=== PATIENT | female | born 1995 | race American Indian/Alaskan Native ===

== ENCOUNTER 2017-06-26 05:42 | Inpatient (IN) | payer MEDICAID ==
[2017-06-26] MEDS ORDERED: LACTATED RINGERS 1,000 ML ONE (05:52)
[2017-06-26] MEDS: LACTATED RINGERS 1,000 ML IV SCH ×2 (06:00→12:01)
[2017-06-26] MEDS ORDERED: PEPCID IV NR (07:00)
[2017-06-26] MEDS ORDERED: BICITRA PO NR (07:00)
--- NOTE | 2017-06-26 07:17 | History and Physical Report ---
History of Present Illness Date of examination: 06/26/17 Date of admission: 06/26/17 05:42 Chief complaint: I'm here for my History of present illness: Patient is a 22 year old who presents at 39 weeks with EDC 07/03/2017. Patient has been in care since 19 weeks and has been fairly consistent with her visits. She has had an uncomplicated course. All labs have been normal. Past History Past Medical History: no pertinent history Past Surgical History: section (x2) [employer]ORDIN[employer] History: chlamydia Family/Genetic History: none - Obstetrical History Expected Date of Delivery: 07/03/17 Actual Gestation: 39 Week(s) 0 Day(s) : 3 Para: 2 Number of Living Children: 2 Medications and Allergies Allergies Allergy/AdvReac Type Severity Reaction Status Date / Time No Known Allergies Allergy Verified 06/26/17 05:46 Active Meds: Active Medications Citric Acid/Sodium Citrate (Bicitra) 30 ml PO ONCE ONE Stop: 06/26/17 07:02 Famotidine (Pepcid) 20 mg IV ONCE ONE Stop: 06/26/17 07:02 Cefazolin Sodium (Ancef/Sterile Water 2 Gm/20 Ml) 2 gm in 20 mls @ 80 mls/hr IV PREOP NR PRN Reason: Protocol Lactated Ringer's (Lactated Ringers) 1,000 mls @ 2,250 mls/hr IV PREOP RASHAWN Stop: 06/27/17 08:27 Oxytocin/Sodium Chloride (Pitocin/Ns 20 Unit/1000ml Drip) 20 units in 1,000 mls @ 0 mls/hr IV TITR RASHAWN PRN Reason: As Directed Metoclopramide HCl (Reglan) 10 mg IV ONCE ONE Stop: 06/26/17 07:02 Review of Systems All systems: negative Constitutional: fatigue Breasts: deferred Gastrointestinal: abdominal pain Genitourinary: normal appearance, contractions - Vital Signs Vital signs: Vital Signs Pulse BP 75 116/70 06/26/17 05:58 06/26/17 05:58 Temp Pulse Resp BP Pulse Ox 75 116/70 06/26/17 05:58 06/26/17 05:58 - Physical Exam Breasts: Cardiovascular: Regular rate, Normal S1, Normal S2 Abdomen: Positive: normal appearance, soft, normal bowel sounds. Negative: distention, tenderness Vulva: both: normal Vagina: Positive: normal moisture. Negative: discharge Cervix: Negative: lesion, discharge Uterus: Positive: normal size, normal contour Adnexa: both: normal Anus/Rectum: Positive: normal perianal skin, heme negative. Negative: rectal mass, hemorrhoids Extremities: Deep Tendon Reflex Grade: Normal +2 Results All other labs normal. Assessment and Plan IUP at 39 weeks here for repeat . Admit for surgery. All consents signed and on the chart.
[2017-06-26] MEDS ORDERED: REGLAN IV NR (07:30)
[2017-06-26 07:44] LABS: Basophils % (Auto) 0.3 % (0.0-1.8); Eosinophils % (Auto) 2.1 % (0.0-4.3); Hematocrit 31.5 % (30.3-42.9); Mean Corpuscular HGB Conc 32 % (30-34); Mean Corpuscular Volume 75 fl (79-97); Platelet Count 328 K/mm3 (140-440); Red Blood Count 4.21 M/mm3 (3.65-5.03); White Blood Count 8.8 K/mm3 (4.5-11.0)
[2017-06-26 07:47] LABS: Mean Corpuscular Hemoglobin 24 pg (28-32)
[2017-06-26] MEDS ORDERED: ANCEF/STERILE WATER 2 GM/20 ML 2 GM/20 ML SYRINGE IV NR (08:00)
--- NOTE | 2017-06-26 09:06 | Anesthesia Day of Surgery ---
Anesthesia Day of Surgery - Day of Surgery Patient Examined: Yes Patient H&P Reviewed: Yes Patient is NPO: Yes
--- NOTE | 2017-06-26 09:06 | Anesthesia Consultation ---
Anesthesia Consult and Med Hx Date of service: 06/26/17 - Airway Anesthetic Teeth Evaluation: Chipped (#9 is broken) ROM Head & Neck: Adequate Mental/Hyoid Distance: Adequate Mallampati Class: Class II Intubation Access Assessment: Probably Good - Pre-Operative Health Status ASA Pre-Surgery Classification: ASA2 Proposed Anesthetic Plan: Epidural, Spinal - Pulmonary Hx Asthma: No COPD: No Hx Pneumonia: No - Cardiovascular System Hx Hypertension: No - Central Nervous System Hx Seizures: No Hx Psychiatric Problems: No - Endocrine Hx Renal Disease: No Hx End Stage Renal Disease: No Hx Hypothyroidism: No Hx Hyperthyroidism: No - Hematic Hx Anemia: No Hx Sickle Cell Disease: No - Other Systems Hx Alcohol Use: No
[2017-06-26] MEDS ORDERED: SODIUM CHLORIDE FLUSH SYRINGE 10 ML IV PRN (10:00)
[2017-06-26] MEDS ORDERED: MORPHINE ONE (10:35)
[2017-06-26] MEDS ORDERED: NEO SYNEPHRINE/NS Syringe(OR USE) IV ONE (11:00)
[2017-06-26] MEDS: PITOCin/NS 20 UNIT/1000ML DRIP 20 UNITS/1,000 ML BAG IV SCH ×2 (11:11→12:06)
[2017-06-26] MEDS ORDERED: PHENERGAN PR PRN (11:30)
[2017-06-26] MEDS ORDERED: ZOFRAN IV PRN ×2 (11:30→14:30)
[2017-06-26] MEDS ORDERED: NARCAN 0.4 MG/1 ML IV PRN ×2 (11:30→14:27)
[2017-06-26] MEDS ORDERED: MORPHINE IV PRN ×2 (11:30→14:27)
[2017-06-26] MEDS ORDERED: BENADRYL IV PRN ×2 (11:30→15:09)
[2017-06-26] MEDS ORDERED: NACL 0.9% IR ONE (11:37)
[2017-06-26] MEDS ORDERED: WATER FOR IRRIG STERILE IR ONE (11:39)
--- NOTE | 2017-06-26 11:51 | Procedure Note ---
OB Delivery Note - Delivery Date of Delivery: 06/26/17 Surgeon: CAROL LOPEZ Estimated blood loss: 500cc - Section Preop diagnosis: repeat Postop diagnosis: same section procedure: repeat low transverse Disposition: PACU Complications: none Narrative: see op report
--- NOTE | 2017-06-26 11:56 | Operative Report ---
Operative Report Operative Report: The operative report for patient Maggie Flynn Date of service 06/26/2017 Preoperative diagnosis: Intrauterine at 39 weeks 2. Previous 2 Postoperative diagnosis: Same Procedure: Repeat low transverse section Surgeon: Dr. Shante Ayon EBL: 500 mL Urine output: 100 mL IV fluids: 1200 mL Findings: Viable male in the vertex occiput anterior position. Weight 6 lbs. 2 oz., 2775g Apgars 8 and 9]. Otherwise normal pelvic anatomy Specimens: None Complications: None Procedure: The patient was admitted to the OR with IV running and in place. She was properly identified as herself. Her spinal was placed in the OR without difficulty. She was placed in the dorsal supine position with a leftward tilt. A Gold catheter was inserted. She was then prepped and draped in the normal sterile fashion. An Allis test was used to confirm adequate anesthesia. Once confirmed, the incision was made with the scalpel and carried to the underlying fascia using the scalpel and the Bovie. The fascia was incised in the midline and incision was extended bilaterally using the curved Wilson scissors. The fascia was then dissected from the underlying rectus muscles in a series of sharp and blunt dissection using the Wilson scissors. Muscles were in the in the midline sharply using Metzenbaum scissors and the peritoneum was entered into bluntly using the surgeon's fingers. A bladder blade was then placed into the incision to protect the bladder. Following this the bladder flap was created. Hysterotomy incision was then made in the scalpel. Upon uterine entry, the amniotic sac was ruptured for clear fluid. The infant was then delivered in the occiput anterior position. His mouth and nose were suctioned on the field. The cord was clamped and cut and he was handed to the waiting NICU personnel. The uterus was then exteriorized and cleared of all clots and debris. The hysterotomy incision was then closed in a running locked fashion using 0 Vicryl in 2 layers. The abdomen was then copiously irrigated with warm normal saline. Following this the uterus was replaced into the abdominal cavity. At this point the muscles were reapproximated in the midline using individual sutures of 0 Vicryl. Following this the fascia was closed in a running fashion using 0 Vicryl. Tissue was then copiously irrigated. . Skin was closed in a running fashion using 3-0 Monocryl. The sponge lap needle and instrument counts were correct 2. The patient tolerated the procedure well. She was taken to recovery in stable condition.
[2017-06-26] MEDS ORDERED: PITOCin/NS 20 UNIT/1000ML DRIP 20 UNITS/1,000 ML BAG IV SCH (14:27)
[2017-06-26] MEDS ORDERED: D5LR 1,000 ML IV SCH (14:27)
[2017-06-26] MEDS ORDERED: TORADOL IV PRN (14:27)
[2017-06-26] MEDS ORDERED: LANSINOH TP PRN (14:27)
[2017-06-26] MEDS ORDERED: MILK OF MAGNESIA PO PRN (14:27)
[2017-06-26] MEDS ORDERED: TUCKS PAD TP PRN (14:27)
[2017-06-26] MEDS ORDERED: SODIUM CHLORIDE FLUSH SYRINGE 10 ML IV NR (14:27)
[2017-06-26] MEDS ORDERED: MYLICON PO PRN (14:27)
[2017-06-26] MEDS ORDERED: XYLOCAINE MPF 2% ONE (16:00)
[2017-06-26 22:59] LABS: Hematocrit 27.3 % (30.3-42.9); Hemoglobin 8.7 gm/dl (10.1-14.3)
[2017-06-27] MEDS: PERCOCET 5/325 PO PRN ×3 (06:51→22:07)
--- NOTE | 2017-06-27 09:41 | Progress Note ---
Subjective Date of service: 06/27/17 Interval history: Pt is doing well. No residual numbness. Objective - Constitutional Vitals: Vital Signs - 12hr 06/26/17 06/27/17 23:40 05:00 Temperature 98.1 F 98.6 F Pulse Rate 80 72 Respiratory 16 18 Rate Blood Pressure 105/62 108/62 [Right] - Labs CBC & Chem 7: 06/26/17 22:45 Labs: Abnormal lab results 06/26/17 Range/Units 22:45 Hgb 8.7 L (10.1-14.3) gm/dl Hct 27.3 L (30.3-42.9) %
[2017-06-27] MEDS: PRENATAL VITAMIN PO SCH (11:24)
[2017-06-27] MEDS: MOTRIN PO PRN ×2 (11:24→20:25)
--- NOTE | 2017-06-27 14:47 | Progress Note ---
Assessment and Plan POD 1 s/p rltcs. Doing well. Encourage ambulation. To consider discharge on tomorrow Subjective - Subjective Date of service: 06/27/17 Interval history: Patient is a 22 year old who presents at 39 weeks with EDC 07/03/2017. Patient has been in care since 19 weeks and has been fairly consistent with her visits. She has had an uncomplicated course. All labs have been normal. Patient reports: appetite normal, voiding normally, pain well controlled [place]: doing well Objective - Vital Signs Latest vital signs: Vital Signs Temp Pulse Resp BP Pulse Ox 06/27/17 08:40 98.1 F 78 18 112/59 98 06/27/17 05:00 98.6 F 72 18 108/62 06/26/17 23:40 98.1 F 80 16 105/62 06/26/17 20:43 98.9 F 63 16 100/52 06/26/17 17:26 98.6 F 65 18 100/44 Intake and Output 06/26/17 06/27/17 06/27/17 22:59 06:59 14:59 Intake Total 360 600 120 Output Total 600 2100 Balance -240 -1500 120 Intake: Oral 360 120 Intake, Free Water 600 Output: Urine 600 2100 Indwelling Catheter 600 1600 Void 500 Other: Total, Intake Amount 240 120 Total, Output Amount 600 500 # Voids Void 1 - Exam Cardiovascular: Present: Regular rate, Normal S1, Normal S2 Lungs: Present: Clear to auscultation, Normal air movement Abdomen: Present: normal appearance, soft Uterus: Present: normal, firm Extremities: Present: normal Incision: Present: normal, dry, intact - Labs Labs: Abnormal lab results 06/26/17 Range/Units 22:45 Hgb 8.7 L (10.1-14.3) gm/dl Hct 27.3 L (30.3-42.9) %
[2017-06-27] MEDS: FEOSOL PO SCH (20:25)
[2017-06-28] MEDS ORDERED: BOOSTRIX IM ONE (06:00)
[2017-06-28] MEDS: MOTRIN PO PRN (06:07)
[2017-06-28] MEDS: PERCOCET 5/325 PO PRN (11:45)
[2017-06-28] MEDS: PRENATAL VITAMIN PO SCH (11:45)
[2017-06-28] MEDS: FEOSOL PO SCH (11:45)
[2017-06-28] MEDS ORDERED: Fluarix Quad 2017-2018(36 MOS+ IM ONE (12:00)
--- NOTE | 2017-06-28 14:35 | Progress Note ---
Assessment and Plan POD 2 s/p rltcs. Doing well. Patient requesting discharge on today. Subjective - Subjective Date of service: 06/28/17 Interval history: Patient is a 22 year old who presents at 39 weeks with EDC 07/03/2017. Patient has been in care since 19 weeks and has been fairly consistent with her visits. She has had an uncomplicated course. All labs have been normal. Patient reports: appetite normal, voiding normally, pain well controlled, ambulating normally : doing well Objective - Vital Signs Latest vital signs: Vital Signs Temp Pulse Resp BP Pulse Ox 06/28/17 09:15 97.2 F L 66 108/59 06/27/17 23:54 97.6 F 59 L 18 112/64 06/27/17 16:42 97.6 F 69 18 117/71 99 Intake and Output 06/27/17 06/28/17 06/28/17 22:59 06:59 14:59 Intake Total 720 720 Balance 720 720 Intake: Oral 360 Intake, Free Water 360 720 Other: Total, Intake Amount 360 # Voids Void 1 1 - Exam Breasts: Present: deferred Cardiovascular: Present: Regular rate, Normal S1, Normal S2 Lungs: Present: Clear to auscultation, Normal air movement Abdomen: Present: normal appearance, soft, normal bowel sounds Uterus: Present: normal, firm, fundal height below umbilicus Incision: Present: normal, dry, intact
--- NOTE | 2017-06-28 14:36 | Discharge Summary ---
Providers - Providers Date of Admission: 06/26/17 05:42 Date of discharge: 06/28/17 Attending physician: CAROL LOPEZ Primary care physician: CAROL LOPEZ Hospitalization Reason for admission: section Delivery: Procedure: repeat low transverse Procedure details: see op report Episiotomy: none Laceration: none Incision: normal, dry, intact complications: none Discharge diagnosis: IUP at term delivered baby: male Hospital course: unremarkable Condition at discharge: Good Disposition: DC-01 TO HOME OR SELFCARE Plan - Discharge Medications Prescriptions: Docusate Sodium [Colace] 100 mg PO BID PRN #60 capsule PRN Reason: Constipation Ferrous Sulfate [Feosol 325 MG tab] 325 mg PO BID #60 tablet Ibuprofen [Motrin] 800 mg PO Q8HR PRN #40 tablet PRN Reason: Pain Oxycodone HCl/Acetaminophen [Percocet 7.5/325 mg] 1 each PO Q6HR PRN #40 tablet PRN Reason: Pain - Provider Discharge Summary Additional instructions: [] Smoking cessation referral if applicable(refer to patient education folder for contact #) [] Refer to [facility] Booklet Call your doctor immediately for: * Fever > 100.5 * Heavy vaginal bleeding ( >1 pad per hour) * Severe persistent headache * Shortness of breath * Reddened, hot, painful area to leg or breast * Drainage or odor from incision. * Keep incision clean and dry at all times and follow doctor's instructions regarding bathing/showering - Follow up plan Follow up: CAROL LOPEZ MD [Primary Care Provider] - 7 Days
[2017-06-28 15:34] VITALS: BP 120/73
== END 2017-06-28 15:45 | disposition home or self-care (01) | DRG 766 ==
LOC: APU 05:42 → EDBD 05:42 → OB 13:07
PROVIDERS: ADMIT Obstetrics & Gynecology; ATTEND Obstetrics & Gynecology
PROC: 10D00Z1 Extraction of Products of Conception, Low, Open Approach (ICD-10-PCS; principal; 2017-06-26)
PROC: 3E0234Z Introduction of Serum, Toxoid and Vaccine into Muscle, Percutaneous Approach (ICD-10-PCS; 2017-06-28)
DX: O34.211 Maternal care for low transverse scar from previous cesarean delivery (principal); Z23 Encounter for immunization; Z37.0 Single live birth
CPT/HCPCS: 36415; 59025; 85014; 85018; 85025; 86850; 86900; 86901; 90471; 90686; 90715; 96360; 99211; G0463; J0690; J1200; J1885; J2270; J2370; J2405; J2590; J2765; J7120